=== PATIENT | female | born 1970 | race Asian ===

== ENCOUNTER 2024-07-10 15:44 | Inpatient (IN) | payer MEDICAID, OTHER ==
[~2024-07-10] VITALS: Ht 165.1 cm; Wt 103.0 kg
[2024-07-10] MEDS ORDERED: LORazepam 2 MG TABLET PO PRN (16:45)
[2024-07-10] MEDS ORDERED: ZOLPIDEM TARTRATE 10 MG TABLET PO PRN (16:45)
[2024-07-10] MEDS ORDERED: HALOPERIDOL 5 MG TABLET PO PRN (16:45)
[2024-07-10 20:18] LABS: COVID AG,FIA SOURCE NASAL SWAB
[2024-07-10 20:23] LABS: PH,URINE DRUG SCREEN 5.5 (5.0-8.0)
[2024-07-10 20:26] LABS: BASOPHILS % (AUTO) 0.3 % (0.0-2.0); EOSINOPHILS % (AUTO) 0.4 % (1.0-6.0); HEMATOCRIT 44.6 % (36-46); HEMOGLOBIN 14.8 g/dL (12.0-16.0); LYMPHOCYTES # (AUTO) 1.2 K/uL (1.0-4.8); LYMPHOCYTES % (AUTO) 9.8 % (22.0-44.0); MEAN CORPUSCULAR HEMOGLOBIN 29.9 pg (26.0-34.0); MEAN CORPUSCULAR HGB CONC 33.2 G/dL (31.0-37.0); MEAN CORPUSCULAR VOLUME 90 fL (80-100); MONOCYTES # (AUTO) 0.3 K/uL (0.1-1.0); MONOCYTES % (AUTO) 2.6 % (2.0-9.0); NEUTROPHILS # (AUTO) 11.1 K/uL (1.8-7.7); PLATELET COUNT (AUTO) 376 K/uL (150-450); RED BLOOD CELL COUNT(AUTO) 4.96 MIL/uL (4.00-5.20); WHITE BLOOD COUNT (AUTO) 12.8 K/uL (4.5-11.0)
[2024-07-10 20:29] LABS: ALCOHOL, URINE DRUG SCREEN NEGATIVE (NEGATIVE); AMPHET/METH SCREEN,URINE NEGATIVE (NEGATIVE); BARBITURATE SCREEN, URINE NEGATIVE (NEGATIVE); BENZODIAZEPINES SCREEN,URINE NEGATIVE (NEGATIVE); CANNABINOID SCREEN,URINE NEGATIVE (NEGATIVE); COCAINE SCREEN,URINE NEGATIVE (NEGATIVE); METHADONE SCREEN, URINE NEGATIVE (NEGATIVE); OPIATE SCREEN,URINE NEGATIVE (NEGATIVE); PHENCYCLIDINE SCREEN,URINE NEGATIVE (NEGATIVE)
[2024-07-10 20:29] LABS: ANION GAP 10 mmol/L (8-16); CALCIUM, TOTAL 9.1 mg/dL (8.8-10.5); CARBON DIOXIDE 28 mmol/L (22-29); CHLORIDE 99 mmol/L (98-107); CREATININE 1.09 mg/dL (0.60-1.30); GLOMERULAR FILTR. RATE CALC 53 mL/min (>60); GLUCOSE,RANDOM 132 mg/dL (70-110); NEUTROPHILS % (AUTO) 86.9 % (40.0-70.0); POTASSIUM 4.4 mmol/L (3.5-5.1); SODIUM SERUM 137 mmol/L (136-145); UREA NITROGEN, BLOOD 11 mg/dL (7-18)
[2024-07-10 20:37] LABS: ALCOHOL, BLOOD (SERUM) < 3 mg/dL (0-10)
[2024-07-10 20:43] LABS: SARS-COV2 (COVID) ANTIGEN,FIA Negative (Negative)
[2024-07-11 03:14] VITALS: BP 143/80; PULSE 89; RESP 18; TEMP 98; O2SAT 100
[2024-07-11 07:16] LABS: GLUCOMETER DEV NAME(LOC) ERT.5; GLUCOSE,POINT OF CARE 137 MG/DL (70-110)
[2024-07-11 09:55] VITALS: BP 135/83; PULSE 16; PULSE 96; RESP 18; TEMP 98.1; O2SAT 98
[2024-07-11] MEDS ORDERED: CloNIDine HCL 0.1 MG TABLET PO PRN (10:30)
[2024-07-11] MEDS ORDERED: MAG HYDROX/ALUMINUM HYD/SIMETH ES 30 ML SUSPENSION UDCUP PO PRN (10:30)
[2024-07-11] MEDS ORDERED: IBUPROFEN 400 MG TABLET PO PRN (10:30)
[2024-07-11] MEDS ORDERED: ONDANSETRON HCL 4 MG TABLET PO PRN (10:30)
[2024-07-11] MEDS ORDERED: LOPERAMIDE HCL 2 MG CAPSULE PO PRN (10:30)
[2024-07-11] MEDS ORDERED: ALBUTEROL SULFATE HFA 90 MCG/PUFF 8 GM INHALER IH PRN (10:30)
[2024-07-11] MEDS ORDERED: GuaiFENesin/D-METHORPHAN [SUGAR-FREE] 200-20MG/10 ML SYRUP UDCUP PO PRN (10:30)
[2024-07-11] MEDS ORDERED: NICOTINE 14 MG/24 HOUR PATCH TD PRN (10:30)
[2024-07-11] MEDS ORDERED: MAGNESIUM HYDROXIDE SUSPENSION 30 ML UDCUP PO PRN (10:30)
[2024-07-11] MEDS ORDERED: DOCUSATE SODIUM 100 MG CAPSULE PO PRN (10:30)
[2024-07-11] MEDS: CETIRIZINE HCL 10 MG TABLET PO PRN (12:15)
[2024-07-11] MEDS: FLUoxetine HCL 20 MG CAPSULE PO SCH (12:15)
[2024-07-11] MEDS: CLOTRIMAZOLE 1%/BETAMETH DIP 0.05% 15 GM CREAM TP SCH (16:51)
[2024-07-11] MEDS: FLUoxetine HCL 20 MG CAPSULE PO ONE (16:51)
[2024-07-11] MEDS ORDERED: NAPROXEN 250 MG TABLET PO PRN (20:15)
[2024-07-11 20:24] VITALS: BP 142/64; PULSE 77; RESP 18; TEMP 97.3; O2SAT 100
[2024-07-11 21:07] VITALS: BP 142/64; PULSE 77; RESP 18; TEMP 97.3; O2SAT 100
[2024-07-11] MEDS: ATORVASTATIN CALCIUM 40 MG TABLET PO SCH (21:09)
[2024-07-11] MEDS: ACETAMINOPHEN 325 MG TABLET PO PRN (21:10)
[2024-07-11 22:10] VITALS: RESP 18
[2024-07-12] MEDS: MetFORMIN HCL 500 MG TABLET PO SCH (06:37)
[2024-07-12 08:00] VITALS: BP 146/76; PULSE 97; RESP 18; TEMP 98.4; O2SAT 97
[2024-07-12 08:02] LABS: HEMOGLOBIN A1C 6.2 % (3.8-5.6)
[2024-07-12 08:12] LABS: THYROID STIMULATING HORMONE 1.73 uIU/mL (0.36-3.74)
[2024-07-12] MEDS: FLUoxetine HCL 20 MG CAPSULE PO SCH (08:33)
[2024-07-12] MEDS: CETIRIZINE HCL 10 MG TABLET PO SCH (08:34)
[2024-07-12] MEDS: PETROLATUM,WHITE 28 GM JELLY TP PRN (08:34)
[2024-07-12 11:58] LABS: CHOL/HDL RATIO 3.1 (3.9-5.7)
[2024-07-12 20:36] VITALS: BP 143/86; PULSE 79; RESP 18; TEMP 97.8; O2SAT 99
[2024-07-13 06:15] LABS: GLUCOMETER DEV NAME(LOC) 3E.I 2; GLUCOSE,POINT OF CARE 94 MG/DL (70-110)
[2024-07-13 09:59] VITALS: BP 137/93; PULSE 80; RESP 18; TEMP 97.9; O2SAT 96
[2024-07-13] MEDS ORDERED: FLUO-418 PO (11:12)
[2024-07-13] MEDS ORDERED: ATOR40TA28 PO (12:30)
[2024-07-13] MEDS ORDERED: CLOT15CR75 TP (12:31)
[2024-07-13] MEDS ORDERED: METF-1211 PO (12:31)
[2024-07-13] MEDS ORDERED: CETI-450 PO (12:31)
== END 2024-07-13 17:35 | disposition home or self-care (01) | DRG 754 ==
LOC: EMS 15:44 → 3EI 07-11 01:42
PROVIDERS: ADMIT Psychiatry & Neurology Child & Adolescent Psychiatry; ATTEND Psychiatry & Neurology Child & Adolescent Psychiatry
PROC: GZ52ZZZ Individual Psychotherapy, Cognitive (ICD-10-PCS; principal; 2024-07-12)
PROC: GZ56ZZZ Individual Psychotherapy, Supportive (ICD-10-PCS; 2024-07-12)
DX: F32.9 Major depressive disorder, single episode, unspecified (principal); F22 Delusional disorders; R45.851 Suicidal ideations; G47.00 Insomnia, unspecified; E78.5 Hyperlipidemia, unspecified; Z20.822 Contact with and (suspected) exposure to COVID-19; I10 Essential (primary) hypertension; Z88.0 Allergy status to penicillin; Z90.710 Acquired absence of both cervix and uterus
CPT/HCPCS: 80048; 80061; 80307; 82962; 83036; 84443; 85025; 99285; G0480